=== PATIENT | female | born 1990 | race American Indian/Alaskan Native ===

== ENCOUNTER 2017-06-15 18:10 | Emergency (ER) | payer MEDICAID ==
[2017-06-15 18:30] VITALS: BMI 20.4
[2017-06-15 19:38] LABS: RBC URINE 9 /hpf (0-3); URINE BACTERIA OCC (<OCC); URINE BILIRUBIN NEGATIVE (NEGATIVE); URINE BLOOD NEGATIVE (NEGATIVE); URINE COLOR Yellow (YELLOW); URINE GLUCOSE (UA) NORMAL (Normal); URINE KETONE 1+ mg/dL (NEGATIVE); URINE LEUKOCYTE ESTERASE 3+ Leu/uL (Negative); URINE PROTEIN NEGATIVE (NEGATIVE); URINE UROBILINOGEN NORMAL mg/dL (0.2-1.0); WBC URINE 8 /hpf (0-5)
[2017-06-15 20:06] LABS: BASO % 0.4 % (0.0-2.0); EOS # 0.7 K/uL (0.0-0.7); EOS % 6.5 % (0.0-4.0); HEMATOCRIT 30.1 % (34.0-47.0); LYMPH # 1.8 K/uL (1.0-4.3); LYMPH % 16.2 % (20.0-40.0); MEAN CELL VOLUME 74.7 fL (81.0-99.0); MEAN CORPUSCULAR HEMOGLOBIN 23.8 pg (27.0-31.0); MEAN CORPUSCULAR HGB CONC 31.8 g/dL (33.0-37.0); MEAN PLATELET VOLUME 7.8 fL (7.2-11.7); MONO # 0.6 K/uL (0.0-0.8); MONO % 5.1 % (0.0-10.0); RED CELL DISTRIBUTION WIDTH 16.7 % (11.5-14.5); WHITE BLOOD COUNT 10.9 K/uL (4.8-10.8)
[2017-06-15 20:15] LABS: CHLORIDE 101 mmol/L (98-107); POTASSIUM 3.8 mmol/L (3.6-5.2); SODIUM 137 mmol/L (132-148)
[2017-06-15 20:17] LABS: ALB/GLOB RATIO 1.1 (1.0-2.1); AST/SGOT 25 U/L (14-36); BLOOD UREA NITROGEN 9 mg/dL (7-17); CARBON DIOXIDE 24 mmol/L (22-30); GFR AFRICAN-AMERICAN > 60; TOTAL PROTEIN 6.9 g/dL (6.3-8.3)
[2017-06-15 20:18] LABS: ALKALINE PHOSPHATASE 51 U/L (38-126); ALT/SGPT 28 U/L (9-52); CALCIUM 8.8 mg/dl (8.6-10.4); GLUCOSE,RANDOM 75 mg/dL (65-105)
--- NOTE | 2017-06-15 21:32 | US ---
EXAM: US After First Trimester, Transabdominal CLINICAL HISTORY: 26 years old, female; Pain; complicated by abdominal or pelvic pain; Lower; First trimester; Gestational age or lmp: 03/16/2017; TECHNIQUE: Real-time transabdominal obstetrical ultrasound of the maternal pelvis and a second or third trimester with image documentation. COMPARISON: No relevant prior studies available. FINDINGS: Fetus: Single live intrauterine gestation. Membrane noted within sac. Heart rate: heart rate of 152 beats per minute. Presentation: Cephalic. Placenta: Anterior placenta. No placenta previa or abruption. Amniotic fluid: Normal. Anatomy: No gross anomaly is appreciated. BIOMETRICS Gestational age by US: Estimated gestational age of 13 weeks 6 days by measurements. EFW: Estimated weight of 82 cm. BPD: 2.3 cm, correlating with 13 weeks 6 days. HC: 8.9 cm, correlating with 14 weeks 0 days. AC: 6.8 cm, correlating with 13 weeks 3 days. FL: 1.4 cm, correlating with 14 weeks 0 days. MATERNAL: Uterus: Unremarkable. No myometrial mass. Cervix: No cervical dilatation or effacement. Adnexa: LEFT ovary: 1.6 x 1.3 x 1.3 cm simple cyst. Free fluid: No free fluid. IMPRESSION: 1. Single live intrauterine gestation. 2. Incidental/non-acute findings are described above.
[2017-06-15] MEDS ORDERED: cefTRIAXone (Rocephin) 250 mg Inj IM STA (21:36)
--- NOTE | 2017-06-15 21:37 | C.PDOC ---
History Of Present Illness 26 y/o female presents to ED with complaints of vaginal discharge and itching for 2 days with associated pelvic pain. Patient denies pre luly care. Also notes partner has penile discharge. Patient denies fever, vaginal bleeding , urinary symptoms or any other complaints at this time. Time Seen by Provider: 06/15/17 19:13 Chief Complaint (Nursing): Medical Clearance History Per: Patient History/Exam Limitations: no limitations Onset/Duration Of Symptoms: Days Current Symptoms Are (Timing): Still Present Past Medical History Reviewed: Historical Data, Nursing Documentation, Vital Signs Vital Signs: Last Vital Signs Temp 99 F 06/15/17 22:10 Pulse 72 06/15/17 22:10 Resp 16 06/15/17 22:10 BP 100/70 06/15/17 22:10 Pulse Ox 99 06/15/17 22:10 - Medical History PMH: Asthma, Sexually Transmitted Disease (herpes) Surgical History: Family History: States: Unknown Family Hx - Social History Hx Alcohol Use: No Hx Substance Use: No - Immunization History Hx Tetanus Toxoid Vaccination: Yes Hx Influenza Vaccination: Yes Hx Pneumococcal Vaccination: Yes Review Of Systems Except As Marked, All Systems Reviewed And Found Negative. Constitutional: Negative for: Fever, Chills Gastrointestinal: Negative for: Nausea, Vomiting, Diarrhea Genitourinary: Positive for: Vaginal Discharge, Pelvic Pain. Negative for: Dysuria, Frequency, Vaginal Bleeding Skin: Negative for: Rash Physical Exam - Physical Exam Appears: Non-toxic, No Acute Distress Skin: Normal Color, Warm Head: Atraumatic, Normacephalic Eye(s): bilateral: Normal Inspection, EOMI Nose: Normal Oral Mucosa: Moist Neck: Normal ROM, Supple Chest: Symmetrical Cardiovascular: Rhythm Regular Respiratory: Normal Breath Sounds, No Accessory Muscle Use Gastrointestinal/Abdominal: Normal Exam, Soft, No Tenderness, Other (gravid appropriate to dates) Back: No CVA Tenderness, No Vertebral Tenderness Pelvic: Normal External Exam, Vaginal Discharge (White clump curd like discharge ), No Cervical Motion Tenderness, No Adnexal Tenderness Extremity: Normal ROM, Capillary Refill (<2 seconds) Extremity: Bilateral: Atraumatic Neurological/Psych: Oriented x3, Normal Speech, Normal Cognition ED Course And Treatment - Laboratory Results Result Diagrams: 06/15/17 20:03 06/15/17 20:03 O2 Sat by Pulse Oximetry: 98 (RA) Pulse Ox Interpretation: Normal - CT Scan/US Pelvic US Other Rad Studies (CT/US): Read By Radiologist, Radiology Report Reviewed CT/US Interpretation: Accession No. : [id number]. Patient Name / ID : MORE HERMAN / [id number]. Exam Date : 06/15/2017 20:23:17 ( Approved ). Study Comment : Sex / Age : F / 26Y. Creator : Wilner Charlton MD. Dictator : Parts Chaser : Traffic Engineering Director : Wilner Charlton MD. Approver2 : Report Date : 06/15/2017 21:32:00. My Comment : . [facility] Division of Radiology. [address] [place] [address]. Tel. no. . . . Patient Name: VIRGIL AGUERO . Pt. Address: [address] [place] [address]. Rec #: [id number]. [place] [address]: Irais Beaver PA-C. Pt Order Location: [facility] : 1990 Female Age: 26 Order #: [id number]. Reason for exam: pain. . . . . . Ultrasound. . . OB , LIMITED Exam Date : 06/15/17. . This imaging exam was performed at [facility]. EXAM: US After First Trimester, Transabdominal. . CLINICAL HISTORY: 26 years old, female; Pain; complicated by abdominal or pelvic. pain; Lower; First trimester; Gestational age or lmp: 03/16/2017; . . TECHNIQUE: Real-time transabdominal obstetrical ultrasound of the maternal pelvis and a. second or third trimester with image documentation. . COMPARISON: No relevant prior studies available. . FINDINGS: Fetus: Single live intrauterine gestation. Membrane noted within sac. Heart rate: heart rate of 152 beats per minute. Presentation: Cephalic. Placenta: Anterior placenta. No placenta previa or abruption. Amniotic fluid: Normal. Anatomy: No gross anomaly is appreciated. . BIOMETRICS. Gestational age by US: Estimated gestational age of 13 weeks 6 days by. measurements. EFW : Estimated weight of 82 cm. BPD: 2.3 cm, correlating with 13 weeks 6 days. HC: 8.9 cm, correlating with 14 weeks 0 days. AC: 6.8 cm, correlating with 13 weeks 3 days. FL: 1.4 cm, correlating with 14 weeks 0 days. . MATERNAL: Uterus: Unremarkable. No myometrial mass. Cervix: No cervical dilatation or effacement. Adnexa: LEFT ovary: 1.6 x 1.3 x 1.3 cm simple cyst. Free fluid: No free fluid. . IMPRESSION: 1. Single live intrauterine gestation. 2. Incidental/non-acute findings are described above. . Dictated By: Wilner Charlton MD. Dictated Date/Time: 06/15/172131. Signed By: Wilner Charlton MD. Date Signed: 06/15/172131. Transcribed By: StupeflixREC. Transcribe Date/Time: 06/15/172131 Progress Note: Pt was offered STD treatment- secondary to boyfriend having penile discharge. Rocephin and Zithro ordered. Discussed with pt clinical dx of candidiasis. Discussed treatment options and strict follow up with OBGYN in 1 -2 days for re-evaluation. Labs and results given. Disposition - Disposition Referrals: Mike Whatley MD [Staff Provider] - Disposition: HOME/ ROUTINE Disposition Time: 22:20 Condition: STABLE Additional Instructions: Follow up with OBGYN doctor in 1-3 days without fail for further evaluation. Take medications as prescribed. Return to the emergency department at any time if symptoms persist or worsen. Prescriptions: Miconazole [Miconazole 7] 100 mg VG HS 7 Days Multivit/Folic Acid/I [ Plus] 1 tab PO DAILY #30 tab Instructions: Vulvovaginal Candidiasis (ED) - Clinical Impression Clinical Impression: Vulvovaginal candidiasis, Exposure to STD - Scribe Statement The provider has reviewed the documentation as recorded by the Rene Hogan All medical record entries made by the Rene were at my direction and personally dictated by me. I have reviewed the chart and agree that the record accurately reflects my personal performance of the history, physical exam, medical decision making, and the department course for this patient. I have also personally directed, reviewed, and agree with the discharge instructions and disposition.
[2017-06-15 22:11] VITALS: BP 100/70; PULSE 72; RESP 16; TEMP 99
[2017-06-17 20:20] VITALS: O2SAT 98
== END 2017-06-15 22:10 | disposition home or self-care (01) ==
LOC: C.ER 18:10
DX: B37.3 Candidiasis of vulva and vagina (principal); Z20.2 Contact with and (suspected) exposure to infections with a predominantly sexual mode of transmission
CPT/HCPCS: 76815; 80053; 81001; 84702; 84703; 85025; 87086; 96372; 99283; J0696

== ENCOUNTER 2017-09-12 21:49 | Emergency (ER) | payer MEDICAID ==
[2017-09-12 22:20] VITALS: BMI 22.3
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
[2017-09-13 04:14] VITALS: BP 100/61; PULSE 93; RESP 18; TEMP 97.9
== END 2017-09-12 23:03 | disposition home or self-care (01) ==
LOC: C.EROB 21:49
DX: O26.892 Other specified pregnancy related conditions, second trimester (principal); S39.91XA Unspecified injury of abdomen, initial encounter; Y04.0XXA Assault by unarmed brawl or fight, initial encounter; Y92.512 Supermarket, store or market as the place of occurrence of the external cause; Z3A.25 25 weeks gestation of pregnancy

== ENCOUNTER 2017-10-29 17:49 | Emergency (ER) | payer MEDICAID ==
[2017-10-29] MEDS ORDERED: Lactated Ringer's 1,000 ML IV ONE (18:18)
[2017-10-29] MEDS ORDERED: Betamethasone Soluspan 30 mg/5mL Inj Susp IM ONE (18:34)
[2017-10-29] MEDS ORDERED: Magnesium Sulfate 6 GM in Dextrose 5% In Water 250 ML IVPB ONE (18:35)
[2017-10-29 19:11] LABS: RBC URINE 1 /hpf (0-3); URINE BACTERIA OCC (<OCC); URINE BILIRUBIN NEGATIVE (NEGATIVE); URINE BLOOD NEGATIVE (NEGATIVE); URINE COLOR Yellow (YELLOW); URINE GLUCOSE (UA) NORMAL (Normal); URINE KETONE NEGATIVE (NEGATIVE); URINE LEUKOCYTE ESTERASE 1+ Leu/uL (Negative); URINE PROTEIN NEGATIVE (NEGATIVE); WBC URINE 13 /hpf (0-5)
--- NOTE | 2017-10-29 19:13 | OBHP ---
Datetime: 10/29/2017 18:15 IP Adm Impression: , intrauterine IP Chief Complaint Other: Previous C/S x 2; previous delivery IP Adm Impression Other: Reterm contractions; abdominal pain Admit Comment, IP Provider: Patient is a 26 year old at 32w6d with DMITRI of 12/21/17 presents t o L+D for 2 day history of lower abdominal/back pain. Pain is intermittent, feels pressure when walki ng. Currently rates the pain 9/10. States that she feels the pain q5-10min. Recently had intercourse last night. Denies any trauma. Endorses +FM, denies VB, LOF. Patient is a private of Dr Ann, last s aw him 10/09/17. Issues: Previous C/S x 2 OB Hx: 1. 2001 TOP 2. 2006 at term, female, 6lbs 13 oz, no complications 3. 2012 PLTCD at term - pre-eclampsia, male, 7lbs 12oz, no post op complications 4. [place] 32 weeks [place] [facility] [place], both female 3lbs 14oz, 2lbs 15oz 5. 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 [facility] - 10 x regular x 5 days Denies hx of fibroids, ovarian cysts Denies hx abnormal pap smears Hx of trichomonas and chlamydia - both treated Allergies: peanuts (hives and itchy throat) Medications: PNV, albuterol (last used years ago) Medical Hx: Asthma Surgical Hx: C/S x 2, D+C, right breast biopsy - benign, fibroadenoma Social Hx: Denies alcohol, tobacco, drug use; prior marijuana use quit 2 years ago Family Hx: Mother - Hx of lung CA, ; Father - unknown ; family hx of HTN, DM PE : See above A/P: 26 y.o at 32w3d presents with pre-term contractions, previous C/S x 2, in pain -Stable, afebrile -CEFM and TOCO -IV hydration -UA sent -Will give Mag sulfate bolus and celestone -[place] [facility] [place] Dr Seth Escoto DO PGY-1 Attending Note: I agree with the above as documented by the Resident. Patient was seen, evaluate d and examined by me. Case discussed with her private OB wo wants patient transferred to Level III ce nter. This was discussed with patient and father of baby. It was also explained to patient - adminis tering of celestone for lung profile and magnesium sulphate for neuroprotection. Patient expre ssed an understanding and agrees. Plan: 1) As above. FHR - Baseline A Provider: 140 Contraction Comments Provider: q3-4 min Comments, ACOG Physical Exam: VSS Gen: AAOx3 Skin: (+) tattooes (right and left forearm; left thigh; right lower leg) CV: RRR Lungs: CTA B/L Abd: Soft, gravid. Healed pfannenstiel with keloid scar. Fundal height 32 cm Ext: No clubbing, cyanosis, edema SVE: fingertip/30/high, soft consistency EGA AdmitDate IP: 32.3 IP Chief Complaint: Uterine contractions NICHD Variability Prov Fetus A: Moderate 6-25bpm NICHD Accel Fetus A IP Provider: 10X10 FHR Category Provider Fetus A: Category I NICHD Decel Fetus A IP Provider: None Dilatation, Provider: fingertip Effacement, Provider: 30 Station, Provider: -3
--- NOTE | 2017-10-29 19:16 | OBHP ---
Datetime: 10/29/2017 18:15 IP Adm Impression Other: Preeterm contractions; abdominal pain IP Admit Plan Other[place] [facility] [place]
[2017-10-29] MEDS ORDERED: Magnesium Sulfate 20 gm 20 GM/500 ML BAG IV SCH (19:30)
[2017-10-30 01:32] VITALS: BP 109/63; PULSE 89; RESP 18; TEMP 98.1; O2SAT 100
== END 2017-10-29 20:50 | disposition short-term general hospital (02) ==
LOC: C.EROB 17:49
DX: O60.03 Preterm labor without delivery, third trimester (principal); Z3A.32 32 weeks gestation of pregnancy
CPT/HCPCS: 81001; 96372; 96374; 96376; 99284; J0702; J3475; J7060; J7120

== ENCOUNTER 2017-12-10 07:39 | Inpatient (IN) | payer MEDICAID ==
[2017-12-10] MEDS ORDERED: cefOXitin IV 2 gm in Dextrose 2 GM/50 ML BAG IVPB ONE (09:19)
[2017-12-10] MEDS ORDERED: Sodium Citrate/Citric Acid 15 ml Sol PO ONE (09:19)
[2017-12-10] MEDS ORDERED: Lactated Ringer's 1,000 ML IV SCH (09:30)
[2017-12-10] MEDS ORDERED: cefOXitin 2 GM in Dextrose 5% In Water 100 ML IV ONE (09:30)
[2017-12-10] MEDS ORDERED: Sodium Citrate/Citric Acid 15 ml Sol ONE (10:00)
[2017-12-10 10:23] LABS: BASO % 0.3 % (0.0-2.0); EOS # 0.6 K/uL (0.0-0.7); EOS % 6.5 % (0.0-4.0); HEMOGLOBIN 9.4 g/dL (11.0-16.0); LYMPH # 1.8 K/uL (1.0-4.3); LYMPH % 18.8 % (20.0-40.0); MEAN CELL VOLUME 75.9 fL (81.0-99.0); MEAN CORPUSCULAR HEMOGLOBIN 24.9 pg (27.0-31.0); MEAN CORPUSCULAR HGB CONC 32.8 g/dL (33.0-37.0); MEAN PLATELET VOLUME 8.7 fL (7.2-11.7); MONO # 0.5 K/uL (0.0-0.8); MONO % 5.5 % (0.0-10.0); NEUT # 6.5 K/uL (1.8-7.0); NEUT % 68.9 % (50.0-75.0); RBC 3.78 Mil/uL (3.80-5.20); RED CELL DISTRIBUTION WIDTH 19.4 % (11.5-14.5); WHITE BLOOD COUNT 9.5 K/uL (4.8-10.8)
[2017-12-10 10:27] LABS: SQUAMOUS EPITHIAL 16 /hpf (0-5); URINE BACTERIA RARE (<OCC); URINE BILIRUBIN NEGATIVE (NEGATIVE); URINE BLOOD NEGATIVE (NEGATIVE); URINE CLARITY Hazy (Clear); URINE COLOR Yellow (YELLOW); URINE GLUCOSE (UA) NORMAL (Normal); URINE LEUKOCYTE ESTERASE NEG Leu/uL (Negative); URINE NITRATE NEGATIVE (NEGATIVE); URINE PROTEIN NEGATIVE (NEGATIVE); URINE UROBILINOGEN NORMAL mg/dL (0.2-1.0)
[2017-12-10 10:44] LABS: ALBUMIN 3.4 g/dL (3.5-5.0); ALT/SGPT 28 U/L (9-52); AST/SGOT 25 U/L (14-36); BLOOD UREA NITROGEN 10 mg/dL (7-17); CALCIUM 8.8 mg/dl (8.6-10.4); GFR AFRICAN-AMERICAN > 60; GFR NON-AFRICAN AMERICAN > 60
[2017-12-10 10:47] LABS: ALB/GLOB RATIO 1.1 (1.0-2.1)
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
[2017-12-10] MEDS ORDERED: Oxytocin 20 units in LR 2,000 ML IV ONE (10:58)
[2017-12-10] MEDS ORDERED: Oxytocin 10 Units/ml Inj ONE (10:59)
[2017-12-10] MEDS ORDERED: Morphine 1 mg/ml preservative-free Inj(Duramorph) ONE (11:13)
[2017-12-10] MEDS ORDERED: Triamcinolone Acetonide 40 mg/mL Inj ONE (11:36)
[2017-12-10] MEDS ORDERED: Phenylephrine 10 mg/ml Inj ONE (12:10)
[2017-12-10] MEDS: Simethicone 80 mg Chewtab PO SCH ×2 (17:24→22:27)
[2017-12-10 17:56] VITALS: RESP 20
[2017-12-10] MEDS: Oxycodone/Acetaminophen 5/325 mg Tab PO PRN (22:27)
--- NOTE | 2017-12-10 22:28 | OP ---
PROCEDURE DATE: 12/10/2017 PREOPERATIVE DIAGNOSES: Intrauterine at 38 weeks, category 2 tracing, early labor, previous cesarian section x2. POSTOPERATIVE DIAGNOSES: Intrauterine at 38 weeks, category 2 tracing, early labor, previous cesarian section x2. PROCEDURE: Lower segment section. FINDINGS: A live female infant, Apgars 9 at 1 minute and 9 at 5 minutes with normal tubes and ovaries. SURGEON: Celestino Causey MD. DESIGN TECHNOLOGY TEACHER: Praveen Dickerson MD. ESTIMATED BLOOD LOSS: 250 mL. COMPLICATIONS: Nil. DESCRIPTION OF PROCEDURE: After the risks, benefits, and alternatives of the planned procedures including but not limited to infection, hemorrhage, deep vein thrombosis, atelectasis, pneumonia, pulmonary embolism, damage to the bladder, damage to the ureter, renal insufficiency, renal failure, wound infection, wound dehiscence, incisional hernia, keloid formation, damage to large and small intestines, damage to inferior vena cava and aorta requiring extensive repair, anesthesia complications, electrolyte imbalance, possibility of , fluid overload, cerebral edema, air embolism, and other complications that were discussed, but are not listed above have been explained to the patient and all her questions were answered and informed consent was obtained. The patient was taken to the operating room in a stable condition. Under suitable level of spinal anesthesia, she was prepped and draped in a sterile fashion after having been placed in a supine position. The abdomen was entered through a Pfannenstiel-type incision and carried through the subcutaneous tissues to the fascia. Fascia was opened transversely and dissected off the rectus abdominis musculature. The rectus abdominis musculature was then in the midline to remove the parietal peritoneum, which was entered sharply and incised superiorly and inferiorly. The bladder peritoneum was then entered in a curvilinear fashion and dissected off the lower uterine segment. The lower uterine segment was then entered through a curvilinear incision. Surgeon's fingers were inserted into the lower uterine segment to grasp the 's head, which was lying in a right occipital anterior position. The head was easily delivered, nose and mouth was suctioned free of amniotic fluid, and the remainder of the infant was delivered without any difficulty. Cord was doubly clamped and cut and the baby was handed over to the website/blog editor who was in attendance. Cord blood was collected with Pitocin running, placenta was manually removed. The endometrium was then cleaned free of remaining membranes and clots. The uterine incision was then closed in layers with the first layer being a running interlocking layer using #1 chromic and the second layer being used to imbricate the first layer. Hemostasis was good. The bladder peritoneum was then reapproximated using a running suture of 2-0 chromic. Peritoneal cavity was then irrigated using copious amounts of saline. Saline was evacuated. The abdomen was then closed in layers with 0 chromic to the parietal peritoneum. Rectus muscles were reapproximated using interrupted sutures of 0 chromic. Fascia was reapproximated using 2 separate running sutures of 0 Vicryl to meet in the midline. Subcutaneous tissues were reapproximated using interrupted sutures of 0 chromic and then the initial skin incision was reapproximated using 4-0 Vicryl in a subcuticular fashion. Estimated blood loss for the procedure was 250 mL. Pad, needle, and instrument counts were correct x2. There were no complications. Celestino Causey MD
--- NOTE | 2017-12-10 22:34 | HP ---
HISTORY OF PRESENT ILLNESS: Patient is a 27-year-old female 5, para 4, with a history of two previous sections and one vaginal delivery with a due date of 12/21/2017 at 38 weeks 5 days, who presented today with contractions since about 6:00 a.m. this morning. She denies any leakage of fluid. She denies any vaginal bleeding. Patient was noted to have variable decelerations. Cervix is closed, but patient is mariia every 3 minutes. Patient's course has been essentially unremarkable. PAST MEDICAL HISTORY: Unremarkable. SOCIAL HISTORY: She does not smoke or drink. MEDICATIONS: Currently, she is not taking any calcium or airborne medications. PHYSICAL EXAMINATION: VITAL SIGNS: Her blood pressure is 110/70, pulse is 72, respiratory rate is 20, temperature is 98.8. HEAD, EAR, NOSE, AND THROAT: Within normal. CHEST: Clear. CARDIAC: Reveals normal heart sounds without any murmurs. LUNGS: Clear. BREASTS: Reveal no masses. ABDOMEN: Symphyseal-fundal height is 38 cm, longitudinal lie vertex. heart tones are normal. PELVIC: Cervix is 1 cm, 50% effaced, -2 station, vertex. ADMITTING DIAGNOSES: Intrauterine at 38 weeks with a nonreassuring tracing, in early labor. PLAN: To perform a lower segment section. Prior to being scheduled for the surgical procedure, the patient underwent an informed consent, discussion, and education session; during which time, I explained with an understandable terms the following; the nature and extent of the disease process and the nature and extent of the contemplated operation. I also explained to her the risks and potential complications of the operative procedures to include, but not limited to infection, hemorrhoids, deep vein thrombosis, atelectasis, pneumonia, pulmonary embolism, damage to the bladder, damage to the ureter, renal insufficiency, renal failure, wound infection, wound dehiscence, incisional hernia, keloid formation, damage to large and small intestine, damage to inferior vena cava and aorta requiring extensive repair, anesthesia complications, electrolyte imbalance, possibility of , fluid overload, cerebral edema, air embolism, and other complications that were discussed but are not listed above. I also discussed with the patient the anticipated benefits and results of the surgery including a conservative estimate of the successful outcome. I discussed with the patient not accomplished. I informed the patient of the risk of low scores and breathing difficulties in the baby. I discussed with the patient alternative methods of therapy including those I recommend and those I do not recommend, invasive and noninvasive including non-treatment. All of the questions from the patient were encouraged, welcomed, and answered to her satisfaction. Patient was given the opportunity to store her own blood for using an autologous blood transfusion prenatally, and she had declined. Celestino Causey MD
[2017-12-11] MEDS: Oxycodone/Acetaminophen 5/325 mg Tab PO PRN ×5 (03:19→23:42)
[2017-12-11 07:59] LABS: BASO % 0.1 % (0.0-2.0); EOS # 0.3 K/uL (0.0-0.7); HEMOGLOBIN 8.7 g/dL (11.0-16.0); LYMPH # 1.4 K/uL (1.0-4.3); LYMPH % 9.6 % (20.0-40.0); MEAN CELL VOLUME 76.8 fL (81.0-99.0); MEAN CORPUSCULAR HEMOGLOBIN 24.8 pg (27.0-31.0); MEAN CORPUSCULAR HGB CONC 32.3 g/dL (33.0-37.0); MEAN PLATELET VOLUME 9.3 fL (7.2-11.7); MONO # 0.8 K/uL (0.0-0.8); MONO % 5.4 % (0.0-10.0); NEUT # 11.9 K/uL (1.8-7.0); NEUT % 82.9 % (50.0-75.0); PLATELET COUNT 209 K/uL (130-400); RBC 3.52 Mil/uL (3.80-5.20); RED CELL DISTRIBUTION WIDTH 19.8 % (11.5-14.5)
[2017-12-11 08:01] LABS: WHITE BLOOD COUNT 14.3 K/uL (4.8-10.8)
[2017-12-11 10:09] LABS: EOSINOPHIL 2 % (0-4); LYMPHOCYTE 6 % (20-40); MONOCYTE 2 % (0-10); NEUTROPHIL 90 % (50-75); PLATELET ESTIMATE NORMAL (NORMAL); TOTAL CELLS COUNTED 100
[2017-12-11 10:10] LABS: ANISOCYTOSIS MODERATE; GIANT PLATELETS PRESENT; HYPOCHROMIC SLIGHT; LARGE PLATELETS PRESENT; POLYCHROMIC SLIGHT
[2017-12-11 10:11] LABS: MICROCYTOSIS SLIGHT
[2017-12-11] MEDS: Simethicone 80 mg Chewtab PO SCH ×4 (10:52→21:44)
[2017-12-11] MEDS: Prenatal Multivit/Folic Acid/Iron Tab PO SCH (10:52)
[2017-12-11] MEDS: Enoxaparin 30 mg Syringe SC SCH (10:53)
[2017-12-11] MEDS ORDERED: Magnesium Hydroxide Susp 30 ml UD PO ONE (22:00)
[2017-12-12] MEDS: Oxycodone/Acetaminophen 5/325 mg Tab PO PRN ×2 (08:04→17:24)
[2017-12-12] MEDS: Simethicone 80 mg Chewtab PO SCH ×4 (09:11→21:40)
[2017-12-12] MEDS: Enoxaparin 30 mg Syringe SC SCH (09:12)
[2017-12-12] MEDS: Prenatal Multivit/Folic Acid/Iron Tab PO SCH (09:13)
--- NOTE | 2017-12-12 23:04 | PN ---
DATE: SUBJECTIVE: The patient has no complaints. She is passing flatus. OBJECTIVE: VITAL SIGNS: Stable. She is afebrile. ABDOMEN: Soft. Incision is clean and intact. EXTREMITIES: Showed no evidence of DVT. GENITOURINARY: Lochia is scant. BREASTS: Reveal no engorgement. ASSESSMENT: The patient is status post section day #2. PLAN: To continue to encourage ambulation and advance diet. Celestino Causey MD
[2017-12-13] MEDS: Oxycodone/Acetaminophen 5/325 mg Tab PO PRN (05:29)
[2017-12-13 07:48] VITALS: BP 101/67; PULSE 85; TEMP 97.4; O2SAT 97
[2017-12-13] MEDS: Enoxaparin 30 mg Syringe SC SCH (09:24)
[2017-12-13] MEDS: Simethicone 80 mg Chewtab PO SCH (09:24)
[2017-12-13] MEDS: Prenatal Multivit/Folic Acid/Iron Tab PO SCH (09:24)
== END 2017-12-13 12:01 | disposition home or self-care (01) | DRG 371 ==
LOC: C.4D 08:50 → C.4M 17:00
PROVIDERS: ADMIT Obstetrics & Gynecology Reproductive Endocrinology; ATTEND Obstetrics & Gynecology Reproductive Endocrinology
PROC: 10D00Z1 Extraction of Products of Conception, Low, Open Approach (ICD-10-PCS; principal; 2017-12-10)
DX: O34.211 Maternal care for low transverse scar from previous cesarean delivery (principal); O75.82 Onset (spontaneous) of labor after 37 completed weeks of gestation but before 39 completed weeks gestation, with delivery by (planned) cesarean section; O76 Abnormality in fetal heart rate and rhythm complicating labor and delivery; O99.52 Diseases of the respiratory system complicating childbirth; J45.909 Unspecified asthma, uncomplicated; Z3A.38 38 weeks gestation of pregnancy; Z37.0 Single live birth

== ENCOUNTER 2018-03-27 20:16 | Emergency (ER) | payer MEDICAID ==
[2018-03-27 20:16] VITALS: BMI 22.3
[2018-03-27 21:07] VITALS: RESP 20; TEMP 98.2; O2SAT 99
--- NOTE | 2018-03-27 21:17 | C.PDOC ---
History Of Present Illness 27 year old female presents to the ED for evaluation of colicky left-sided abdominal pain which began around 3 weeks ago. Patient was recently evaluated for malodorous vaginal discharge and was prescribed Flagyl PO and Metronidazole cream with improvement. Patient is also c/o hard stools. She states that her diet is poor and mostly consists of junk food and snacks. She denies fever, chills. Patient notes she delivered 4 months and has her child at bedside. Time Seen by Provider: 03/27/18 21:08 Chief Complaint (Nursing): Abdominal Pain History Per: Patient History/Exam Limitations: no limitations Onset/Duration Of Symptoms: Other (3 weeks ) Current Symptoms Are (Timing): Still Present Location Of Pain/Discomfort: Other (left-sided ) Quality Of Discomfort: "Pain" Associated Symptoms: Constipation. denies: Fever, Chills Additional History Per: Patient Past Medical History Reviewed: Historical Data, Nursing Documentation, Vital Signs Vital Signs: Last Vital Signs Temp 98.2 F 03/27/18 21:02 Pulse 88 03/27/18 21:45 Resp 20 03/27/18 21:45 BP 116/72 03/27/18 21:45 Pulse Ox 99 03/27/18 22:09 - Medical History PMH: Asthma, Sexually Transmitted Disease (herpes) Surgical History: - [facility] Procedures EXTRACTION OF POC, LOW CERVICAL, OPEN APPROACH (12/10/17) Family History: States: Unknown Family Hx - Social History Hx Alcohol Use: No Hx Substance Use: No - Immunization History Hx Tetanus Toxoid Vaccination: Yes Hx Influenza Vaccination: Yes Hx Pneumococcal Vaccination: Yes Review Of Systems Constitutional: Negative for: Fever, Chills Gastrointestinal: Positive for: Abdominal Pain (left-sided ), Constipation Physical Exam - Physical Exam Appears: Non-toxic, No Acute Distress Skin: Normal Color, Warm, Dry Head: Atraumatic, Normacephalic Eye(s): bilateral: Normal Inspection Oral Mucosa: Moist Neck: Supple Chest: Symmetrical, No Deformity, No Tenderness Cardiovascular: Rhythm Regular, No Murmur Respiratory: Normal Breath Sounds, No Rales, No Rhonchi, No Wheezing Gastrointestinal/Abdominal: Bowel Sounds (present ), Soft, No Tenderness, No Guarding, No Rebound, Other (thin. tympanic in epigastrium. dull to percussion to left and right abdominal regions. no obturator or psoas signs) Extremity: Normal ROM, Capillary Refill (less than 2 seconds ) Neurological/Psych: Oriented x3, Normal Speech, Normal Cognition ED Course And Treatment O2 Sat by Pulse Oximetry: 99 (on RA) Pulse Ox Interpretation: Normal Progress Note: Magnesium Citrate PO administered. Medical Decision Making Medical Decision Making: crampy LLQ abd discomfort, but not now + h/o constipation, poor diet LOW susp of PID/vaginal d/c provoking this as pt with 2 recent OBGYN visit and treated already no dysuria pt agrees (since she brought 4 m/o) to defer w/u with informed consent (which was already done in past 2 weeks) and trial laxative and re-eval in AM Disposition Doctor Will See Patient In The: Office Counseled Patient/Family Regarding: Studies Performed, Diagnosis - Disposition Referrals: Juloi Holman MD [Staff Provider] - Disposition: HOME/ ROUTINE Disposition Time: 21:17 Condition: GOOD Additional Instructions: trial laxative now (drink bottle of mag citrate) and re-evaluate your abdominal discomfort after using the bathroom 2-3 times. diet and exercise changes eat 7 fresh fruits and vegetables daily. Trial laxative as needed if similar pain recurrs in future. follow-up with Dr. Holman and/or your OBGYN for your abnormal Pap smear and HPV results. Instructions: Constipation, Adult (DC) Forms: [facility] ([place]awk) - Clinical Impression Clinical Impression: Colicky LLQ abdominal pain - Scribe Statement The provider has reviewed the documentation as recorded by the Scribe (Simi Coleman) Provider Attestation: All medical record entries made by the Scribe were at my direction and personally dictated by me. I have reviewed the chart and agree that the record accurately reflects my personal performance of the history, physical exam, medical decision making, and the department course for this patient. I have also personally directed, reviewed, and agree with the discharge instructions and disposition.
[2018-03-27] MEDS ORDERED: Magnesium Citrate Oral SOL (300 ml) PO ONE (21:21)
[2018-03-27 22:17] VITALS: BP 116/72; PULSE 88
== END 2018-03-27 22:15 | disposition home or self-care (01) ==
LOC: C.ER 20:16
DX: R10.32 Left lower quadrant pain (principal)

== ENCOUNTER 2018-12-19 17:23 | Emergency (ER) | payer MEDICAID ==
[2018-12-19 17:24] VITALS: BMI 22.3
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
[2018-12-19 21:29] VITALS: BP 121/68; RESP 16
[2018-12-19 21:30] VITALS: PULSE 60; TEMP 98.1; O2SAT 100
--- NOTE | 2018-12-20 08:52 | CT ---
Date of service: 12/19/2018 PROCEDURE: CT HEAD WITHOUT CONTRAST. HISTORY: dizziness COMPARISON: None available. TECHNIQUE: Axial computed tomography images were obtained through the head/brain without intravenous contrast. Radiation dose: Total exam DLP = 1070.11 mGy-cm. This CT exam was performed using one or more of the following dose reduction techniques: Automated exposure control, adjustment of the mA and/or kV according to patient size, and/or use of iterative reconstruction technique. FINDINGS: HEMORRHAGE: No intracranial hemorrhage. BRAIN: No mass effect or edema. No atrophy or chronic microvascular ischemic changes. VENTRICLES: Unremarkable. No hydrocephalus. CALVARIUM: Unremarkable. PARANASAL SINUSES: 1.5 centimeter mucosal retention cyst and or polyp seen within the posterior left ethmoid air cells/sphenoid sinus. MASTOID AIR CELLS: Unremarkable as visualized. No inflammatory changes. OTHER FINDINGS: None. IMPRESSION: No acute intracranial abnormality. 1.5 centimeter mucosal retention cyst and or polyp seen within the posterior left ethmoid air cells/sphenoid sinus. If symptoms persists, consider correlation with MRI. A preliminary report was generated at 9:11 p.m. on 12/19/[address] Patrick Milton from [facility].
== END 2018-12-19 21:31 | disposition home or self-care (01) ==
LOC: C.ER 17:23
DX: S09.90XA Unspecified injury of head, initial encounter (principal); Y04.0XXA Assault by unarmed brawl or fight, initial encounter; Y92.89 Other specified places as the place of occurrence of the external cause

== ENCOUNTER 2019-01-13 16:30 | Emergency (ER) | payer MEDICAID ==
[2019-01-13 16:30] VITALS: BMI 22.3
[2019-01-13 16:47] VITALS: RESP 18; O2SAT 98
[2019-01-13 17:27] LABS: HCG,QUALITATIVE URINE NEGATIVE (NEGATIVE)
[2019-01-13] MEDS ORDERED: Sodium Chloride 0.9% 1,000 ML IV ONE (17:27)
[2019-01-13 17:29] LABS: SQUAMOUS EPITHIAL 1 /hpf (0-5); URINE BACTERIA OCC (<OCC); URINE BILIRUBIN NEGATIVE (NEGATIVE); URINE BLOOD NEGATIVE (NEGATIVE); URINE CLARITY Hazy (Clear); URINE COLOR Yellow (YELLOW); URINE GLUCOSE (UA) NORMAL (Normal); URINE LEUKOCYTE ESTERASE NEG Leu/uL (Negative); URINE PROTEIN 2+ mg/dL (NEGATIVE); URINE UROBILINOGEN NORMAL mg/dL (0.2-1.0)
[2019-01-13] MEDS ORDERED: Sodium Chloride 0.9% 1,000 ML ONE (17:41)
[2019-01-13 18:03] LABS: BASO % 0.7 % (0.0-2.0); LYMPH # 1.8 K/uL (1.0-4.3); LYMPH % 37.6 % (20.0-40.0); MEAN CELL VOLUME 78.6 fL (81.0-99.0); MEAN CORPUSCULAR HEMOGLOBIN 24.1 pg (27.0-31.0); MEAN CORPUSCULAR HGB CONC 30.7 g/dL (33.0-37.0); MEAN PLATELET VOLUME 8.9 fL (7.2-11.7); MONO # 0.3 K/uL (0.0-0.8); MONO % 6.6 % (0.0-10.0); NEUT # 2.6 K/uL (1.8-7.0); NEUT % 54.1 % (50.0-75.0); RBC 5.38 Mil/uL (3.80-5.20); RED CELL DISTRIBUTION WIDTH 16.4 % (11.5-14.5); WHITE BLOOD COUNT 4.8 K/uL (4.8-10.8)
[2019-01-13 18:09] LABS: ALB/GLOB RATIO 1.5 (1.0-2.1); ALBUMIN 5.1 g/dL (3.5-5.0); ALT/SGPT 22 U/L (9-52); AST/SGOT 49 U/L (14-36); BLOOD UREA NITROGEN 14 mg/dL (7-17); CALCIUM 9.8 mg/dl (8.6-10.4); GFR NON-AFRICAN AMERICAN > 60; LIPASE 118 U/L (23-300)
--- NOTE | 2019-01-13 18:40 | C.PDOC ---
History Of Present Illness 28 year old female presents to ED with complaint of decreased PO intake for that past 4 days. She also complains of generalized weakness and epigastric pain. Patient also states she has been experiencing fatigue. She denies anorexia, vomiting, diarrhea, fever, and dysuria. Time Seen by Provider: 01/13/19 17:06 Chief Complaint (Nursing): Dizziness/Lightheaded History Per: Patient History/Exam Limitations: no limitations Onset/Duration Of Symptoms: Days (4) Current Symptoms Are (Timing): Still Present Past Medical History Reviewed: Historical Data, Nursing Documentation, Vital Signs Vital Signs: Last Vital Signs Temp 98.6 F 01/13/19 16:44 Pulse 82 01/13/19 16:44 Resp 18 01/13/19 16:44 BP 108/70 01/13/19 16:44 Pulse Ox 98 01/13/19 16:44 - Medical History PMH: Asthma, Sexually Transmitted Disease (herpes) Denies: Depression, Diabetes, HTN Surgical History: No Surg Hx, - [facility] Procedures EXTRACTION OF POC, LOW CERVICAL, OPEN APPROACH (12/10/17) Family History: States: Unknown Family Hx - Social History Hx Alcohol Use: No Hx Substance Use: No - Immunization History Hx Tetanus Toxoid Vaccination: No Hx Influenza Vaccination: No Hx Pneumococcal Vaccination: No Review Of Systems Constitutional: Positive for: Weakness. Negative for: Fever, Chills, Other (anorexia) Gastrointestinal: Positive for: Abdominal Pain (epigastric pain), Other (decreased PO intake). Negative for: Vomiting, Diarrhea Genitourinary: Negative for: Dysuria Neurological: Negative for: Weakness, Numbness, Dizziness Physical Exam - Physical Exam Appears: Non-toxic, No Acute Distress, Other (fatigued) Skin: Normal Color, Warm, Dry Head: Atraumatic, Normacephalic Oral Mucosa: Moist Neck: Normal ROM, Supple Chest: Symmetrical, No Deformity Cardiovascular: Rhythm Regular, No Murmur Respiratory: No Accessory Muscle Use, No Rales, No Rhonchi, No Wheezing Gastrointestinal/Abdominal: Soft, Tenderness (mild epigastric), No Other (Gan's tenderness, McBurney's point) Extremity: Capillary Refill (<2 seconds) Extremity: Bilateral: Atraumatic, Normal Color And Temperature Pulses: Left Radial: Normal, Right Radial: Normal Neurological/Psych: Oriented x3, Normal Speech, Normal Cognition ED Course And Treatment - Laboratory Results Result Diagrams: 01/13/19 17:51 01/13/19 17:51 Lab Results: Total Bilirubin 1.8 mg/dL (0.2-1.3) H 01/13/19 17:51 AST 49 U/L (14-36) H D 01/13/19 17:51 ALT 22 U/L (9-52) 01/13/19 17:51 Alkaline Phosphatase 60 U/L (38-126) 01/13/19 17:51 Total Protein 8.6 g/dL (6.3-8.3) H 01/13/19 17:51 Albumin 5.1 g/dL (3.5-5.0) H D 01/13/19 17:51 Globulin 3.5 gm/dL (2.2-3.9) 01/13/19 17:51 Albumin/Globulin Ratio 1.5 (1.0-2.1) 01/13/19 17:51 Lipase 118 U/L (23-300) 01/13/19 17:51 Urine Color Yellow (YELLOW) 01/13/19 17:20 Urine Clarity Hazy (Clear) 01/13/19 17:20 Urine pH 5.0 (5.0-8.0) 01/13/19 17:20 Ur Specific [place] 1.028 (1.003-1.030) 01/13/19 17:20 Urine Protein 2+ mg/dL (NEGATIVE) H 01/13/19 17:20 Urine Glucose (UA) Normal mg/dL (Normal) 01/13/19 17:20 Urine Ketones 2+ mg/dL (NEGATIVE) H 01/13/19 17:20 Urine Blood Negative (NEGATIVE) 01/13/19 17:20 Urine Nitrate Negative (NEGATIVE) 01/13/19 17:20 Urine Bilirubin Negative (NEGATIVE) 01/13/19 17:20 Urine Urobilinogen Normal mg/dL (0.2-1.0) 01/13/19 17:20 Ur Leukocyte Esterase Neg [place]/uL (Negative) 01/13/19 17:20 Urine WBC (Auto) 11 /hpf (0-5) H 01/13/19 17:20 Urine RBC (Auto) 1 /hpf (0-3) 01/13/19 17:20 Ur Squamous Epith Cells 1 /hpf (0-5) 01/13/19 17:20 Urine Bacteria Occ (<OCC) H 01/13/19 17:20 Urine HCG, Qual Negative (NEGATIVE) 01/13/19 17:20 Urine HCG, Qual Negative (NEGATIVE) 01/13/19 17:20 O2 Sat by Pulse Oximetry: 98 (RA) Progress Note: Labs with UA and flu a/b ordered for patient. CXR ordered or patient. Patient given IV fluids and Protonix IVP. Upon reassessment, patient is resting comfortably, in no distress, and is stable for discharge. Patient is advised to follow up with PMD within 1-2 days. Patient is advised to return to ED if symptoms persist or worsen. Disposition Counseled Patient/Family Regarding: Studies Performed, Diagnosis, Need For Followup, Rx Given - Disposition Referrals: Julio Holman MD [Staff Provider] - Disposition: HOME/ ROUTINE Disposition Time: 18:45 Condition: STABLE Additional Instructions: FOLLOW UP WITH YOUR DOCTOR IN 1-2 DAYS USE PROTONIX DAILY USE NAUSEA MEDICATION NEEDED DRINK PLENTY OF FLUIDS RETURN TO ER IF YOUR SYMPTOMS WORSEN Prescriptions: Ondansetron ODT [Zofran ODT] 1 odt PO BID PRN #15 odt PRN Reason: Nausea/Vomiting Pantoprazole [Protonix EC Tab] 20 mg PO DAILY #7 ect Instructions: Viral Syndrome (DC) Forms: [facility] (French) Print Language: PERSIAN - Clinical Impression Clinical Impression: Viral syndrome - Scribe Statement The provider has reviewed the documentation as recorded by the Scribe (Luisa Nelson) All medical record entries made by the Scribe were at my direction and personally dictated by me. I have reviewed the chart and agree that the record accurately reflects my personal performance of the history, physical exam, medical decision making, and the department course for this patient. I have also personally directed, reviewed, and agree with the discharge instructions and disposition.
[2019-01-13 18:52] VITALS: BP 104/57; PULSE 87; TEMP 99.1
--- NOTE | 2019-01-13 21:07 | RAD ---
HISTORY: COUGH COMPARISON: No prior. TECHNIQUE: Chest, one view. FINDINGS: LUNGS: No focal consolidation. 9 mm rounded opacity projects over the left mid lung the level of the 4th anterior rib and 7th posterior rib, presumably due to confluence of shadows Please note that chest x-ray has limited sensitivity for the detection of pulmonary masses. PLEURA: No significant pleural effusion identified. No definite pneumothorax . CARDIOVASCULAR: The cardiomediastinal silhouette appears within normal limits of size. No significant atherosclerotic calcification present. OSSEOUS STRUCTURES: No acute osseous abnormality identified. VISUALIZED UPPER ABDOMEN: Unremarkable. OTHER FINDINGS: None. IMPRESSION: No focal consolidation. 9 mm rounded opacity projects over the left mid lung the level of the 4th anterior rib and 7th posterior rib, presumably due to confluence of shadows. Comparison with prior outside imaging recommended if available. Otherwise if indicated, follow-up outpatient CT of the chest may be considered. Study marked for PA review.
== END 2019-01-13 18:55 | disposition home or self-care (01) ==
LOC: C.ER 16:30
DX: B34.9 Viral infection, unspecified (principal)
CPT/HCPCS: 71045; 80053; 81001; 83690; 84703; 85025; 87804; 96361; 96374; 99285; C9113; J7030

== ENCOUNTER 2019-02-09 10:20 | Emergency (ER) | payer MEDICAID ==
[2019-02-09 10:20] VITALS: BMI 22.3
[2019-02-09 10:37] VITALS: BP 109/70; RESP 18; O2SAT 99
[2019-02-09 11:04] LABS: HCG,QUALITATIVE URINE NEGATIVE (NEGATIVE)
[2019-02-09 11:07] LABS: SQUAMOUS EPITHIAL 1 /hpf (0-5); URINE BILIRUBIN NEGATIVE (NEGATIVE); URINE BLOOD NEGATIVE (NEGATIVE); URINE CLARITY Hazy (Clear); URINE COLOR Yellow (YELLOW); URINE GLUCOSE (UA) NORMAL (Normal); URINE LEUKOCYTE ESTERASE NEG Leu/uL (Negative); URINE PROTEIN NEGATIVE (NEGATIVE); URINE UROBILINOGEN NORMAL mg/dL (0.2-1.0)
[2019-02-09] MEDS ORDERED: cefTRIAXone (Rocephin) 250 mg Inj IM STA (11:46)
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
[2019-02-09 13:43] VITALS: PULSE 87; TEMP 98
== END 2019-02-09 13:43 | disposition home or self-care (01) ==
LOC: C.ER 10:20
DX: N76.0 Acute vaginitis (principal); Z20.2 Contact with and (suspected) exposure to infections with a predominantly sexual mode of transmission
CPT/HCPCS: 81001; 84703; 87070; 87491; 87591; 96372; 99283; J0696